=== PATIENT | female | born 1985 | race Caucasian/White ===

== ENCOUNTER 2023-03-01 20:00 | Emergency (ER) | payer SELFPAY ==
[2023-03-01] MEDS ORDERED: Ketorolac 30 MG/ML SDV IM ONE (20:46)
[2023-03-01] MEDS ORDERED: Acetaminophen 325 MG Tab PO ONE (20:47)
[2023-03-01] MEDS ORDERED: Lidocaine 4% 1 each Patch TOP ONE (21:00)
[2023-03-01] MEDS ORDERED: Diazepam 2 MG Tab PO ONE (22:00)
== END 2023-03-01 23:59 | disposition home or self-care (01) ==
LOC: MW.ED 20:00
DX: S80.02XA Contusion of left knee, initial encounter (principal); M25.552 Pain in left hip; W00.0XXA Fall on same level due to ice and snow, initial encounter
CPT/HCPCS: 73562; 96372; 99283; A9270; J1885

== ENCOUNTER 2024-03-19 16:33 | Emergency (ER) | payer BC, MEDICAID ==
[2024-03-19 19:40] LABS: HEMATOCRIT 40.4 % (37.0-47.0); HEMOGLOBIN 13.7 g/dL (12.0-16.0); MEAN CORPUSCULAR HEMOGLOBIN 29.1 pg (28.0-32.0); MEAN CORPUSCULAR HGB CONC 33.9 g/dL (32.0-36.0); MEAN CORPUSCULAR VOLUME 85.8 fL (83.0-99.0); PLATELET COUNT,PLT 442 K/uL (150-400); RED BLOOD CELL COUNT 4.71 M/uL (4.10-5.30)
[2024-03-19 19:43] LABS: WHITE BLOOD CELL COUNT,WBC 31.19 K/uL (3.9-11.3)
[2024-03-19 20:20] LABS: LYMPHOCYTES ABSOLUTE MAN 7.49 K/uL (1.00-4.80); LYMPHOCYTES PERCENT MAN 24 % (24-44); MONOCYTES ABSOLUTE MAN 1.56 K/uL (0.00-0.80); MONOCYTES PERCENT MAN 5 % (0-8); SEG NEUTROPHILS ABSOLUTE MAN 22.14 K/uL (1.80-7.70); SEG NEUTROPHILS PERCENT MAN 71 % (41-71)
[2024-03-19] MEDS: Dexamethasone 4 MG/ML SDV IVPUSH ONE (20:24)
[2024-03-19] MEDS: Albuterol/Ipratropium 3.0-0.5 MG/3 ML Neb Soln NEB ONE (20:24)
[2024-03-19] MEDS: Sodium Chloride 0.9% 10 ML Syringe FLUSH PRN (20:25)
[2024-03-19] MEDS: Sodium Chloride 0.9% 1,000 ML IV ONE (20:25)
[2024-03-19] MEDS: cefTRIAXone 2 GM in Sodium Chloride 0.9% 50 ML IV ONE (20:25)
[2024-03-19 20:41] LABS: A/G RATIO 0.6 (0.9-1.6); BILIRUBIN TOTAL 1.2 mg/dL (0.2-1.0); CALCIUM 9.2 mg/dL (8.5-10.1); CARBON DIOXIDE,CO2 26.3 mmol/L (21.0-32.0); CREATININE 0.9 mg/dL (0.6-1.0); EST CRCL DRUG DOSING (CG) 83.23 mL/min; PROTEIN TOTAL,TP 7.8 g/dL (6.4-8.2)
[2024-03-19] MEDS: Doxycycline 100 MG in Sodium Chloride 0.9% 100 ML IV ONE (20:54)
[2024-03-20 00:03] LABS: APPEARANCE,URINE SLT CLOUDY; BILIRUBIN,URINE NEGATIVE (NEGATIVE); COLOR,URINE YELLOW; GLUCOSE,URINE 250 mg/dL (NEGATIVE); KETONES,URINE 40 mg/dL (NEGATIVE); LEUKOCYTE ESTERASE,URINE NEGATIVE (NEGATIVE); NITRITE,URINE NEGATIVE (NEGATIVE); OCCULT BLOOD,URINE SMALL (NEGATIVE); PROTEIN,URINE TRACE mg/dL (NEGATIVE); UROBILINOGEN,URINE 0.2 EU/dL (<2.0)
[2024-03-20 00:16] LABS: AMORPHOUS SEDIMENT,URINE LIGHT (NEGATIVE); BACTERIA,URINE 1+ (NEGATIVE); EPITHELIAL CELLS,URINE FEW (NONE-FEW); MUCUS,URINE LIGHT (NONE-MOD); WBC,URINE 0-2 (0-5/HPF)
[2024-03-20] MEDS: Acetaminophen 500 MG Tab PO ONE (00:28)
[2024-03-20] MEDS: Ketorolac 30 MG/ML SDV IVPUSH ONE (00:29)
[2024-03-20] MEDS: VANCOmycin 2 GM/400 ML 2 GM in Premix Bag 1 BAG IV ONE (00:31)
[2024-03-20] MEDS: Sodium Chloride 0.9% 1,000 ML IV ONE (05:33)
[2024-03-20] MEDS: Doxycycline 100 MG in Sodium Chloride 0.9% 100 ML IV SCH (07:33)
[2024-03-20] MEDS: Iopamidol 755 Mg/ML 100 ML Bottle IVPUSH ONE (07:42)
[2024-03-20] MEDS: VANCOmycin 1.5 GM in Sodium Chloride 0.9% 250 ML IV SCH (09:15)
[2024-03-20] MEDS ORDERED: VANCOmycin 1.5 GM/300 ML 1.5 GM in Premix Bag 1 BAG IV SCH (12:00)
== END 2024-03-20 09:22 ==
LOC: MW.ED 16:33
DX: J18.9 Pneumonia, unspecified organism (principal); E86.0 Dehydration; L03.317 Cellulitis of buttock; J98.4 Other disorders of lung; Z90.81 Acquired absence of spleen; Z90.49 Acquired absence of other specified parts of digestive tract
CPT/HCPCS: 36415; 71260; 74177; 80053; 81001; 83605; 83880; 84484; 84703; 85025; 85379; 87040; 87428; 93005; 96361; 96365; 96366; 96367; 96375; 99285; A9270; J0696; J1100; J1885; J3371; J3372; J3490; J7030; J7050; Q9967; 93010; J7620-GY